=== PATIENT | female | born 1980 | race Caucasian/White ===

== ENCOUNTER 2020-06-26 18:05 | Emergency (ER) | payer OTHER ==
[~2020-06-26] VITALS: Ht 157.5 cm; Wt 107.2 kg
[2020-06-26 20:39] VITALS: BP 125/70
== END 2020-06-26 20:36 | disposition home or self-care (01) ==
LOC: ER 18:06
DX: M25.512 Pain in left shoulder (principal); V49.9XXA Car occupant (driver) (passenger) injured in unspecified traffic accident, initial encounter; Y93.89 Activity, other specified; Y92.488 Other paved roadways as the place of occurrence of the external cause; Y99.8 Other external cause status
CPT/HCPCS: 73030; 99283